=== PATIENT | female | born 1970 ===

== ENCOUNTER 2017-10-14 14:11 | Emergency (ER) | payer MEDICAID ==
[~2017-10-14] VITALS: Ht 152.4 cm; Wt 97.5 kg
[2017-10-14 15:34] LABS: BASOPHIL % 0.2 % (0-2); PLATELET COUNT 239 x10^3mcL (130-400); RED CELL DISTRIBUTION WIDTH 13.2 % (11.5-14.5)
[2017-10-14 15:48] LABS: CALCIUM 8.1 mg/dL (8.5-10.1); CARBON DIOXIDE 30.3 mmol/L (21-32); CHLORIDE SERUM 99 mmol/L (98-107); CREATININE SERUM 0.5 mg/dL (0.6-1.0); GFR1 > 60 mL/min; GLUCOSE SERUM 196 mg/dL (74-106); POTASSIUM SERUM 3.7 mmol/L (3.5-5.1); SODIUM SERUM 138 mmol/L (136-145)
[2017-10-14 15:52] LABS: ALBUMIN 3.6 g/dL (3.4-5.0); ALKALINE PHOSPHATASE 95 U/L (46-116); ALT/SGPT 43 U/L (14-59); AST/SGOT 21 U/L (15-37); BILIRUBIN TOTAL 1.1 mg/dL (0.20-1.00); LIPASE 80 IU/L (73-393); TOTAL PROTEIN, SERUM 7.7 g/dL (6.4-8.2)
[2017-10-14 17:23] LABS: microscopic required? YES; urine erythrocyte 2+ (NEGATIVE)
[2017-10-14 18:29] VITALS: BP 105/67
== END 2017-10-14 18:29 | disposition home or self-care (01) ==
LOC: ED 14:11
PROVIDERS: Emergency Medicine
DX: M46.1 Sacroiliitis, not elsewhere classified (principal); I10 Essential (primary) hypertension; E11.9 Type 2 diabetes mellitus without complications; Z90.49 Acquired absence of other specified parts of digestive tract
CPT/HCPCS: 83880; J0696; J1885; J2405; J7030

== ENCOUNTER 2018-09-09 19:58 | Emergency (ER) | payer SELFPAY ==
[~2018-09-09] VITALS: Ht 162.6 cm; Wt 106.1 kg
[2018-09-09 20:10] VITALS: Ht 162.6 cm; Wt 106.1 kg
[2018-09-09 23:33] LABS: BASOPHIL % 0.4 % (0-2); PLATELET COUNT 279 x10^3mcL (130-400); RED CELL DISTRIBUTION WIDTH 13.1 % (11.5-14.5)
[2018-09-09 23:56] LABS: CALCIUM 8.6 mg/dL (8.5-10.1); CARBON DIOXIDE 25.5 mmol/L (21-32); CHLORIDE SERUM 102 mmol/L (98-107); CREATININE SERUM 0.6 mg/dL (0.6-1.0); GFR1 > 60 mL/min; GLUCOSE SERUM 185 mg/dL (74-106); POTASSIUM SERUM 3.7 mmol/L (3.5-5.1); SODIUM SERUM 138 mmol/L (136-145)
[2018-09-10 00:09] LABS: ALBUMIN 3.4 g/dL (3.4-5.0); ALKALINE PHOSPHATASE 96 U/L (46-116); ALT/SGPT 29 U/L (14-59); AST/SGOT 12 U/L (15-37); BILIRUBIN TOTAL 0.4 mg/dL (0.20-1.00); LIPASE 153 IU/L (73-393); TOTAL PROTEIN, SERUM 7.5 g/dL (6.4-8.2)
[2018-09-10 01:37] VITALS: BP 142/102
== END 2018-09-10 01:40 | disposition home or self-care (01) ==
LOC: ED 19:58
PROVIDERS: Emergency Medicine
DX: K57.92 Diverticulitis of intestine, part unspecified, without perforation or abscess without bleeding (principal); I10 Essential (primary) hypertension; E66.01 Morbid (severe) obesity due to excess calories; E11.9 Type 2 diabetes mellitus without complications; Z68.41 Body mass index [BMI] 40.0-44.9, adult; Z90.49 Acquired absence of other specified parts of digestive tract
CPT/HCPCS: 36415; J1885

== ENCOUNTER 2020-06-09 13:11 | Emergency (ER) | payer MEDICAID ==
[~2020-06-09] VITALS: Ht 160 cm; Wt 105.2 kg
[2020-06-09 13:24] VITALS: Ht 160 cm; Wt 105.2 kg
[2020-06-09 16:00] VITALS: BP 150/75
== END 2020-06-09 16:00 | disposition home or self-care (01) ==
LOC: ED 13:11
DX: H10.33 Unspecified acute conjunctivitis, bilateral (principal); I10 Essential (primary) hypertension; E11.9 Type 2 diabetes mellitus without complications; E78.00 Pure hypercholesterolemia, unspecified; Z90.49 Acquired absence of other specified parts of digestive tract
CPT/HCPCS: 82962